=== PATIENT | male | born 1980 | race Caucasian/White ===

== ENCOUNTER 2024-09-13 08:59 | Day surgery (SDC) | payer BC, SELFPAY ==
[2024-09-12 14:22] VITALS: BMI 26.6
[2024-09-13 09:38] VITALS: BP 110/79; PULSE 71; RESP 16; TEMP 36.3; O2SAT 97
[2024-09-13 09:45] VITALS: BMI 26.6
--- NOTE | 2024-09-13 09:53 | EXP.ANES.CKL ---
[facility] Disclaimer: The information contained in this section may have been updated after the patient was seen, as this information can be updated by other users. Surgical History History of laparoscopic appendectomy Hx laparoscopic cholecystectomy Family History Other Colon cancer Family history of cancer Social History Smoking Status: Never smoker alcohol intake: former substance use type: denies use current occupational status: other Travel in the last 8 weeks?: None [facility] Anesthesia Checklist Patient Identification Patient Identification: Arm Band and Verbal (Name & ) Structural Data Admitted From: Home Planned Operative Procedure/s: colonoscopy Consent for Planned Operative Procedure(s) Verified: Yes Verified Documents: Surgical Consent NPO Status Verified Time NPO: 00:00 Additional verifications Anesthesia Reactions: No Airway Assessment Mallampati Score:: Class II C-Spine Mobility Assessed: Yes TMJ Mobility Assessed: Yes Dentition: Good Dentition Neurological Assessment Level of Consciousness: Awake, Alert and Appropriate Hx Seizures: No Numbness or tingling in extremities: No Anesthesia Plan Anesthesia Risk discussed: Yes Anesthesia Plan: Verified ASA Class: I Anesthesia Type: MAC
--- NOTE | 2024-09-13 10:45 | P.HP_ITS ---
History of Present Illness *Admission Date: 09/13/24 *Reason for visit:: Family history of colon cancer *History of present illness: Mr. Clayton is a 44-year-old gentleman with a strong family history of colon cancer who is here for high risk screening colonoscopy. The examination is jomar med medically necessary for high risk screening colonoscopy. The patient has been seen, interviewed and examined prior to the procedure by both myself and the anesthesia provider. [facility] Disclaimer: The information contained in this section may have been updated after the patient was seen, as this information can be updated by other users. Surgical History History of laparoscopic appendectomy Hx laparoscopic cholecystectomy Family History Other Colon cancer Family history of cancer Social History (Updated 09/13/24 @ 09:54 by Randolph Dominguez CRNA) Smoking Status: Never smoker alcohol intake: former substance use type: denies use current occupational status: other Travel in the last 8 weeks?: None Have you lived/traveled outside [place] in past 30 days?: No Contact w/someone who lives/traveled outside US past 30 days?: No Exposure to someone with infectious disease in past 14 days?: No Do you have a fever (greater than 100.4 F or 38 C)?: No Have you tested positive for COVID-19?: No Exposed to someone with COVID-19 in past 14 days?: No Do you have a sore throat?: No Do you have a cough?: No Do you have any weakness?: No Do you have any diarrhea?: No Are you experiencing any unusual bleeding?: No Do you have any muscle aches/pain?: No Do you have any abdominal pain?: No Are you experiencing loss of taste or smell?: No Review of Systems Review of Systems Review of systems (narrative): Negative *Cardiovascular Comments: Negative *Gastrointestinal Comments: Negative *Genitourinary Comments: Negative *Musculoskeletal Comments: Negative *Neurologic Comments: Negative Meds Home Medications and Allergies Home Medications ?Medication ?Instructions ?Recorded ?Confirmed ?Type sodium,potassium,mag sulfates 17.5 See Rx Instructions PO .COMPLEX 09/04/24 09/13/24 Rx gram-3.13 gram-1.6 gram oral soln #354 mL (Suprep Bowel Prep Kit) cetirizine 10 mg tablet 10 mg PO DAILY 09/13/24 05/2 01/10 History New Prescriptions to Start Prescriptions: Allergies Allergy/AdvReac Type Severity Reaction Status Date / Time No Known Drug Allergies Allergy Other Verified 09/13/24 09:47 Exam Data for Last 24 hours Vital signs and Labs for Last 24 Hours: Temp Pulse Resp BP Pulse Ox O2 Del Method 97.3 F L 71 16 110/79 97 Room Air 09/13/24 09:38 09/13/24 09:38 09/13/24 09:38 09/13/24 09:38 09/13/24 09:38 09/13/24 09:38 I & O for Last 24 hours: Intake & Output 09/10/24 09/11/24 09/12/24 09/13/24 23:59 23:59 23:59 23:59 Weight 213 lb 213 lb *Routine HEENT Exam Head: Present normocephalic Eye: Present EOMI and PERRL ENT: Present mucous membranes moist *Routine Neck Exam Neck: Present supple *Routine Respiratory Exam Respiratory: Present CTA bilaterally *Routine Cardiovascular Exam Cardiovascular: Present RRR *Routine Abdominal Exam Abdominal: Present soft and normoactive bowel sounds; Absent tenderness *Routine Rectal Exam Rectal:: deferred *Routine Genitalia Exam Genitalia:: deferred *Routine Extremities Exam Extremities: Absent cyanosis, clubbing or edema *Routine Skin Exam Skin: Present warm; Absent rash *Routine Neurological Exam Neurological: Present alert and oriented X3 Assessment and Plan *Assessment and plan (1) Family history of colon cancer: Status: Acute Category: Medical Code(s): Z80.0 - Family history of malignant neoplasm of digestive organs Plan A/P: 1. Family history of colon cancer is the preprocedural diagnosis. The patient will be anesthetized/sedated using MAC sedation. The patient has been seen and examined. Cardiac and lung assessment prior to the examination is stable. Proceed with planned high risk screening colonoscopy.
--- NOTE | 2024-09-13 10:54 | HMH.PROCNOTE ---
[facility] Procedure Note Date: 09/13/24 Time: 11:09 Procedure Note:: Colonoscopy Procedure Report: Colonoscopy with cold snare polypectomy Endoscopist: Elias Mcmillan II, MD Referring physician: Pierre Alfaro MD, [address] [place] [id number] Date of Procedure: September 13, 2024 Equipment: Olympus 190 variable stiffness pediatric colonoscope Sedation: MAC sedation Indication: Mr. Clayton is a 44-year-old gentleman who is here for initial screening colonoscopy. He does state that his maternal grandfather had colon cancer and his mother had colon polyps. He has had intermittent perirectal/perianal abscess that has been treated and usually spontaneously drains. He reports no rectal bleeding, abdominal pain, weight loss or change in bowel habits. Procedure: Prior to the procedure, a history and physical exam was performed, and patient's medications and allergies were reviewed. The risks, benefits and alternatives of the sedation and procedure were discussed with the patient. All questions were answered and informed consent was obtained. The patient was brought to the procedure room. Patient identification and proposed procedure were verified by the physician and the nurse. The patient was placed in a left lateral decubitus position and the scope was passed under direct vision. Throughout the procedure, the patient's blood pressure, pulse, and oxygen saturations were monitored continuously. The colonoscopy was accomplished without difficulty. The patient tolerated the procedure well. Findings: On digital rectal examination there was normal rectal tone. There were no external hemorrhoids. There was a healed posterior midline anal fissure. There were no anal fistulas. The prostate was 2+, mildly firm but symmetric without nodules. The colonoscope was introduced through the anal canal to the rectum and advanced to the cecum. The ileocecal valve and appendiceal orifice were identified. The scope was advanced a short distance into the ileum which appeared grossly normal. The scope was then withdrawn into the colon. There were 2 colon polyps (ascending x 1 (5 mm) and transverse x 1 (3 mm)). These were both removed via cold snare polypectomy. The remaining cecum, ascending, transverse, descending, sigmoid and rectum were grossly normal. There were no other mucosal abnormalities identified. Upon retroflexion within the rectum there were grade 2 internal hemorrhoids. The preparation was excellent throughout with Escalante Preparation Score of 9. The cecal time was 12 minutes. Impression: 1. Diminutive colonic polyps x 2 2. Grade 2 internal hemorrhoids Plan: I will follow-up the polyp histology and recommend repeat surveillance colonoscopy again in 5 to 7 years. I would encourage psyllium bulking fiber supplementation (Konsyl) on a regular and daily basis.
[2024-09-13 11:11] VITALS: BP 99/60; PULSE 80; RESP 16; TEMP 36.1; O2SAT 98
[2024-09-13 11:21] VITALS: BP 102/60; PULSE 71; RESP 18; O2SAT 99
[2024-09-13 11:31] VITALS: BP 103/58; PULSE 69; RESP 16; O2SAT 97
[2024-09-13 11:41] VITALS: BP 121/75; PULSE 77; RESP 16; O2SAT 98
== END 2024-09-13 11:41 | disposition home or self-care (01) ==
PROVIDERS: PCP Family Medicine; Visit Provider Internal Medicine Gastroenterology
PROC: 0DJD8ZZ Inspection of Lower Intestinal Tract, Via Natural or Artificial Opening Endoscopic (ICD-10-PCS; CPT 45378; principal; 2024-09-13 10:30)
DX: Z12.11 Encounter for screening for malignant neoplasm of colon (principal); D12.2 Benign neoplasm of ascending colon; K64.1 Second degree hemorrhoids; Z80.0 Family history of malignant neoplasm of digestive organs; Z83.719 Family history of colon polyps, unspecified; Z90.49 Acquired absence of other specified parts of digestive tract
CPT/HCPCS: 45385; J2003; J2704